=== PATIENT | male | born 1955 | race Two or more races ===

== ENCOUNTER 2020-08-30 10:51 | Day surgery (SDC) | payer BC ==
[~2020-08-30] VITALS: Ht 185.4 cm; Wt 72.4 kg
[2020-08-30] MEDS ORDERED: ATOR10TA87 PO (11:35)
[2020-08-30] MEDS ORDERED: INSU100V43 (11:35)
[2020-08-30] MEDS ORDERED: LEVO750T46 PO (11:35)
[2020-08-30] MEDS ORDERED: METO-384 PO (11:35)
[2020-08-30] MEDS ORDERED: PANT40TA54 PO (11:35)
[2020-08-30 11:38] VITALS: BP 127/83
[2020-08-30 11:38] LABS: BASOPHILS # (AUTO) 0.1 X10'3 (0-0.2); BASOPHILS % (AUTO) 1.4 % (0-1); EOSINOPHILS # (AUTO) 0.1 X10'3 (0-0.9); EOSINOPHILS % (AUTO) 1.1 % (0-6); HEMATOCRIT 39.2 % (42.0-52.0); HEMOGLOBIN 13.1 g/dl (14.0-17.9); LYMPHOCYTES # (AUTO) 1.8 X10'3 (1.1-4.8); LYMPHOCYTES % (AUTO) 29.5 % (21-51); MEAN CORPUSCULAR HEMOGLOBIN 29.6 PG (27.0-31.0); MEAN CORPUSCULAR HGB CONC 33.4 g/dL (33.0-36.5); MEAN CORPUSCULAR VOLUME 88.6 FL (78-98); MEAN PLATELET VOLUME 6.7 FL (7.4-10.4); MONOCYTES # (AUTO) 0.5 X10'3 (0-0.9); MONOCYTES % (AUTO) 7.9 % (2-12); NEUTROPHILS # (AUTO) 3.6 X10'3 (1.8-7.7); NEUTROPHILS % (AUTO) 60.1 % (42-75); PLATELET COUNT 631 X10'3 (140-440); RED BLOOD COUNT 4.42 X10'6 (4.70-6.10); RED CELL DISTRIBUTION WIDTH 13.1 % (11.5-14.5)
[2020-08-30 13:00] VITALS: BP 135/80
--- NOTE | 2020-08-30 13:00 | NUR ---
Drain removed by Dr. Coley at bedside. Dressing cdi. Patient vitals stable, patient discharged home at 1305 in stable condition, walked out with son in law, taken home in private vehicle, all belongings sent home, patient understands discharge instructions and followup, continued home meds per dr. coley.
== END 2020-08-30 13:05 | disposition home or self-care (01) ==
LOC: SSTAY O 10:51
PROVIDERS: ATTEND Radiology Diagnostic Radiology
DX: Z48.03 Encounter for change or removal of drains (principal); E11.9 Type 2 diabetes mellitus without complications; I11.0 Hypertensive heart disease with heart failure; I50.20 Unspecified systolic (congestive) heart failure; N40.0 Benign prostatic hyperplasia without lower urinary tract symptoms; E78.5 Hyperlipidemia, unspecified; Z79.4 Long term (current) use of insulin; Z79.899 Other long term (current) drug therapy
CPT/HCPCS: 36415; 85025